=== PATIENT | female | born 1955 | race Hispanic/Latino ===

== ENCOUNTER 2018-08-04 15:33 | Outpatient (CLI) | payer OTHER | END 2018-08-04 15:34 | disposition home or self-care (01) | LOC: LABHHL 15:33 | PROVIDERS: ATTEND Specialist | DX: R92.0 Mammographic microcalcification found on diagnostic imaging of breast (principal) | CPT/HCPCS: 88305; 88342; 88361 ==

== ENCOUNTER 2019-06-16 10:50 | Outpatient (CLI) | payer OTHER | END 2019-06-16 10:51 | disposition home or self-care (01) | LOC: LABHHL 10:50 | PROVIDERS: ATTEND Surgery | DX: N60.01 Solitary cyst of right breast (principal); L57.0 Actinic keratosis; R23.4 Changes in skin texture; J45.909 Unspecified asthma, uncomplicated | CPT/HCPCS: 87075; 87116; 88112; 88305 ==

== ENCOUNTER 2021-01-29 10:22 | Outpatient (CLI) | payer BC ==
--- NOTE | 2021-01-31 10:32 | Mammography Report ---
DIGITAL SCREENING MAMMOGRAM WITH TOMOSYNTHESIS WITH CAD, 01/31/2021 CLINICAL INFORMATION / INDICATION: Screening TECHNIQUE: Digital bilateral 2D and 3D mammography with tomosynthesis was obtained in the craniocaud al and mediolateral oblique projections. Computer-Aided Detection (CAD) analysis was used for interp retation of this study. COMPARISON: 01/18/2020 FINDINGS: Breast Density: The breasts are heterogeneously dense, which may obscure small masses. No dominant mass, suspicious calcifications, or architectural distortion in either breast. Benign-appearing bilateral calcifications are again seen. Right surgical, right radiation therapy rad iation therapy, bilateral and biopsy changes are again noted. IMPRESSION: No mammographic evidence of malignancy. Follow up recommendation: Routine yearly BI-RADS Category 2: Benign. A "normal" or negative report should not discourage follow up or biopsy of a clinically significant f inding. A written summary of these findings will be mailed to the patient. The patient will be entered into a mammography reporting system which will generate a reminder letter for the patient's next appointmen t at the appropriate interval. The [employer] recommends yearly mammograms starting at age 40 and continuing as l jossue as a woman is in good health. Breast MRI is recommended for women with an approximate 20-25% or greater lifetime risk of breast cancer, including women with a strong family history of breast or ova nacho cancer or who have been treated for Hodgkin's disease. Signer Name: Bryan Lucio MD Signed: 01/31/2021 10:28 AM Workstation Name: [id number]
== END 2021-01-29 10:23 | disposition home or self-care (01) ==
LOC: SPVWC 10:22
PROVIDERS: ATTEND Surgery
DX: Z12.31 Encounter for screening mammogram for malignant neoplasm of breast (principal)
CPT/HCPCS: 77063; 77067